=== PATIENT | female | born 2005 | race Hispanic/Latino ===

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

== ENCOUNTER 2023-02-10 19:37 | Emergency (ER) | payer OTHER, SELFPAY ==
[2023-02-10] MEDS ORDERED: Ketorolac Tromethamine 30 MG/ML VIAL ONE (19:58)
== END 2023-02-10 20:12 | disposition home or self-care (01) ==
LOC: ERS 19:37
DX: S39.82XA Other specified injuries of lower back, initial encounter (principal); V89.2XXA Person injured in unspecified motor-vehicle accident, traffic, initial encounter
CPT/HCPCS: 96372; 99283; J1885

== ENCOUNTER 2023-08-17 12:31 | Emergency (ER) | payer SELFPAY | END 2023-08-18 02:03 | LOC: ERS 12:31 | DX: F29 Unspecified psychosis not due to a substance or known physiological condition (principal); F20.9 Schizophrenia, unspecified | CPT/HCPCS: 36415; 51701; 80053; 80306; 80307; 81001; 81025; 83605; 84443; 85025; 93005; 96360; 96361 ==